=== PATIENT | male | born 1995 | race Hispanic/Latino ===

== ENCOUNTER 2024-07-29 09:13 | Emergency (ER) | payer BC ==
[~2024-07-29] VITALS: Ht 177.8 cm; Wt 96.4 kg
[2024-07-29 09:53] VITALS: BP 143/75
== END 2024-07-29 09:51 | disposition home or self-care (01) ==
LOC: ED 09:13
DX: S81.852A Open bite, left lower leg, initial encounter (principal); W54.0XXA Bitten by dog, initial encounter
CPT/HCPCS: 99283